=== PATIENT | female | born 1965 | race African-American/Black ===

== ENCOUNTER 2017-08-16 12:19 | Emergency (ER) | payer OTHER ==
[~2017-08-16] VITALS: Ht 165.1 cm; Wt 129.3 kg
--- NOTE | ~2017-08-16 | EKG ---
[address] [address] ELECTROCARDIOGRAM REPORT Name: BAR PINTO Room #: DEP 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 : 1965 Requested By: Regina Hansen Order Number: [id number] MD: Naresh Junior Measurements Intervals [place] Rate: 77 P: 31 OK: 188 QRS: 9 QRSD: 86 T: 1 QT: 390 QTc: 442 Interpretive Statements Sinus rhythm Probable anterior infarct, age indeterminate Compared to ECG 07/12/2011 18:30:48 T-wave abnormality no longer present Possible ischemia no longer present Myocardial infarct finding still present Electronically Signed On 08-16-2017 16:58:37 CDT by Naresh Junior [email or web address] <ELECTRONICALLY SIGNED> By: Naresh Junior MD 08/16/17 1658 1249 1249 Naresh Junior MD /SALMA
[~2017-08-16 12:19] MED LIST: ATIVAN1 MG PO; BACTRIM DS TAB1 EACH PO; COLACE 100 MG100 MG PO; COZAAR100 MG PO; GLUCOPHAGE1000 MG PO; GLUCOPHAGE500 MG PO; GLUCOTROL5 MG PO; HYDROCODON-ACE1 EAC7 PO; LANTUS SUBQ; LASIX 40 MG TAB40 M1 PO; NORVASC 2.5 MG2.5 M1 PO; TRAMADOL 50 MG50 MG PO; TRAMADOL-ACETA1 EACH PO
[2017-08-16] MEDS ORDERED: CLONAZEPAM 0.50.5 M1 PO (12:52)
[2017-08-16] MEDS ORDERED: SERTRALINE HCL50 MG PO (12:54)
[2017-08-16] MEDS ORDERED: LANTUS100 UNIT/M SUBQ (12:57)
[2017-08-16 13:20] LABS: ABSOLUTE NEUTROPHILS 4.4 thou/uL (1.4-8.2); EOSINOPHILS 0.9 % (0.0-3.0); HEMATOCRIT 41.5 % (37.0-47.0); HEMOGLOBIN 13.3 gm/dL (12.0-15.0); LYMPHOCYTES 36.9 % (24.0-44.0); MCH 25.6 pg (26.0-34.0); MCHC 32.1 g/dL (28.0-37.0); MCV 79.8 fL (80.0-100.0); PLATELET COUNT 303 thou/uL (150-400); POLYS 56.2 % (36.0-66.0); RDW 14.7 % (10.5-14.5); WBC 7.8 thou/uL (4.0-11.0)
[2017-08-16 13:39] LABS: ANION GAP 6 mmol/L (7-16); BUN 11 mg/dL (7-18); CALCIUM 9.3 mg/dL (8.5-10.1); CHLORIDE 102 mmol/L (98-107); CO2 29 mmol/L (21-32); CREATININE 0.7 mg/dL (0.6-1.0); GLUCOSE 219 mg/dL (74-106); POTASSIUM 3.8 mmol/L (3.5-5.1); SODIUM 137 mmol/L (136-145)
[2017-08-16 13:40] LABS: TROPONIN-I < 0.04 ng/mL (<0.06)
[2017-08-16 13:59] LABS: SALICYLATE < 2.8 mg/dL (2.8-20.0)
[2017-08-16 14:38] LABS: URINE BILIRUBIN NEGATIVE (Negative); URINE BLOOD NEGATIVE (Negative); URINE CLARITY CLEAR; URINE COLOR YELLOW; URINE GLUCOSE-RANDOM* TRACE (Negative); URINE KETONES TRACE (Negative); URINE LEUKOCYTES-REFLEX NEGATIVE (Negative); URINE NITRITE-REFLEX NEGATIVE (Negative); URINE PROTEIN (DIPSTICK) 2+ (Negative); URINE SPECIFIC GRAVITY >= 1.030 (1.005-1.035); URINE UROBILINOGEN 0.2 E.U./dl (0.2-1.0)
[2017-08-16 14:46] LABS: AMP/METHAMP Negative (Negative); BARBITURATES Negative (Negative); BENZODIAZEPINES Negative (Negative); COCAINE Negative (Negative); METHADONE Negative (Negative); OPIATES Negative (Negative); PCP Negative (Negative)
[2017-08-16 14:49] LABS: BACTERIA-REFLEX 1-9 Few /HPF (None Seen); CASTS None Seen /LPF (None Seen); CRYSTALS None Seen /LPF (None Seen); SQUAMOUS 4-10 Moderate /LPF (0-3); URINE RBC None Seen /HPF (0-2); URINE WBC-REFLEX None Seen /HPF (0-5)
[2017-08-16] MEDS ORDERED: IBUPROFEN 600600 M1 PO (15:48)
== END 2017-08-16 16:54 | disposition home or self-care (01) ==
LOC: ER 12:19
PROVIDERS: Emergency Medicine; Nurse Practitioner
DX: R51 Headache (principal); F32.9 Major depressive disorder, single episode, unspecified; I10 Essential (primary) hypertension; E11.9 Type 2 diabetes mellitus without complications; Z90.711 Acquired absence of uterus with remaining cervical stump; Z79.4 Long term (current) use of insulin